=== PATIENT | female | born 1985 | race Caucasian/White ===

== ENCOUNTER → 2018-05-26 14:54 | Outpatient (CLI) | payer OTHER, MEDICAID, SELFPAY ==
[2018-05-26 15:48] LABS: Hematocrit 40.4 % (36-46); Hemoglobin 13.7 g/dL (12.0-16.0); Mean Corpuscular HGB Conc 33.9 % (30-36); Mean Corpuscular Hemoglobin 29.6 PG (26-34); Mean Corpuscular Volume 87.3 fL (80-100); Platelet Count 228 X10^3/uL (150-400); Red Blood Cell Count 4.62 X10^6/uL (4.0-5.2); Red Cell Distribution Width 13.2 % (11.6-14.8); White Blood Cell Count 12.1 X10^3/uL (4.5-11.0)
[2018-05-26 16:49] LABS: T4 Total Thyroxine 7.73 ug/dL (5.5-11.0)
[2018-05-26 17:02] LABS: Thyroid Stimulating Hormone 2.13 uIU/mL (0.47-4.68)
[2018-05-26 17:13] LABS: Hepatitis B Surface Antigen NEGATIVE s/c (NEGATIVE); Rubella Antibody IgG 43.3 IU/mL (>15)
[2018-05-26 18:08] LABS: Urine N gonorrhoeae NOT DETECTED
[2018-05-26 18:09] LABS: Urine Chlamydia NOT DETECTED
[2018-05-29 08:15] LABS: RPR Screen Nonreactive (Nonreactive)
== END ==
PROVIDERS: Visit Provider Nurse Practitioner Obstetrics & Gynecology
DX: Z34.90 Encounter for supervision of normal pregnancy, unspecified, unspecified trimester (principal)
CPT/HCPCS: 36415; 84436; 84443; 85027; 86592; 86762; 86850; 86900; 86901; 87086; 87340; 87491; 87591

== ENCOUNTER → 2018-06-27 14:57 | Outpatient (REF) | payer OTHER, MEDICAID, SELFPAY ==
[2018-06-27 15:30] LABS: Appearance Urine UA CLOUDY; Bilirubin Urine UA NEGATIVE (NEGATIVE); Color Urine UA YELLOW; Glucose Urine UA NEGATIVE (Negative); Ketones Urine UA NEGATIVE (NEGATIVE); Leukocyte Esterase Urine UA NEGATIVE (NEGATIVE); Nitrite Urine UA NEGATIVE (Negative); Occult Blood Urine UA NEGATIVE (Negative); Protein Urine UA NEGATIVE (Negative); Urobilinogen Urine UA 0.2 E.U./dL (0.2); pH Urine UA 7.5 (4.5-8.0)
[2018-06-27 16:19] LABS: Amorphous Sediment Urine 3+; Bacteria Urine Many (>30); RBC Urine 0-1/HPF (0-5/HPF); WBC Urine 0-1/HPF (0-5/HPF)
[2018-06-27 16:20] LABS: Culture Indicated Urine Cult Not Indicated
== END ==
LOC: LAB 14:57
PROVIDERS: Visit Provider Nurse Practitioner Obstetrics & Gynecology
DX: Z34.01 Encounter for supervision of normal first pregnancy, first trimester (principal)
CPT/HCPCS: 81001

== ENCOUNTER → 2018-07-25 12:16 | Outpatient (REF) | payer OTHER, MEDICAID, SELFPAY ==
[2018-07-28 16:28] LABS: Alpha Fetoprotein 54.7 ng/mL (< 6.1)
== END ==
LOC: LAB 12:16
PROVIDERS: Visit Provider Nurse Practitioner Obstetrics & Gynecology
DX: O09.892 Supervision of other high risk pregnancies, second trimester (principal)
CPT/HCPCS: 82105

== ENCOUNTER → 2018-08-15 12:00 | Outpatient (CLI) | payer OTHER, MEDICAID, SELFPAY ==
--- NOTE | 2018-08-15 | DI.US.S_ITS ---
PROCEDURE: US OB >= 14 WEEKS FETUS INDICATIONS: ANATOMY SCAN OUTSIDE/PRIOR DATING DATA: Last menstrual period (LMP): Not available. LMP-based estimated date of delivery (LISHA): Not available. First dating scan (date and location): This study, 08/15/18. Estimated date of delivery (LISHA) from first dating scan: 12/26/18. There is an indication that a prior OB ultrasound first trimester been performed but images from that examination are not available for review. TECHNIQUE: Real-time scanning was performed of the fetus, with image documentation and biometric measurements. Endovaginal scanning: Not needed for this study COMPARISON: None. FINDINGS: General: A single living intrauterine gestation is present. Presentation: Transverse head to maternal left. Placenta: Placental position is posterior, without previa. Amniotic fluid index: 15.3 cm, normal range is 5-24 cm. heart rate: 153 beats per minute. Maternal cervical canal: 4.6 cm long. Normal lower limit is 2.5 cm. biometrics: Biparietal diameter: 4.9 cm, 21 weeks 0 days Head circumference: 18.6 cm, 21 weeks 0 days Abdominal circumference: 16.9 cm, 21 weeks 6 days Femur length: 3.2 cm, 20 weeks 1 day Estimated gestational age from initial scan: 20 weeks 4 days Composite gestational age from present scan: 21 weeks 0 days Estimated weight and percentile: 396 g, 72nd percentile Measurement variability for biometric dating: +/- 7 days from 14 weeks to 15 weeks 6 days gestation, +/- 10 days from 16 weeks to 21 weeks 6 days gestation, +/- 2 weeks from 22 weeks to 27 weeks 6 days gestation, +/- 3 weeks for 28 weeks gestation or later. weight reference: 4500 g or EFW >90/95% is considered macrosomia or large for gestational age. EFW <10% is small for gestational age. EFW 5% or less is considered intra-uterine growth restriction. Anatomic survey: Neuro: Ventricles are non-dilated at less than 10 mm. Cisterna magna is normal at 3-11 mm. Cerebellum is normal in size and morphology. Nuchal skin fold: Normal at less than 6 mm between 14-21 weeks gestational age. Face: Nose and lips, facial profile are normal. Spine: No evidence for spina bifida. Heart: 4-chambered heart is present, with normal ventricular outflow tracts. Diaphragm: Diaphragm is intact. Stomach: Left-sided stomach is present. Kidneys: No hydronephrosis. Normal is less than 5 mm in 2nd trimester, less than 7 mm in 3rd trimester. Cord: 3-vessel cord has orthotopic insertion. Bladder: Normal in size. Extremities: All 4 extremities identified. IMPRESSION: Single living intrauterine gestation with estimated date of delivery from this examination centered on 12/26/18. The current weight is 396 g, there is normal amniotic fluid volume, the survey of anatomy is normal, and the current positioning is transverse within the uterus with head directed to the maternal left. Dictated by: Trevor Pickett M.D. on 08/15/2018 at 14:59 Approved by: Trevor Pickett M.D. on 08/15/2018 at 15:04
== END ==
PROVIDERS: Visit Provider Nurse Practitioner Obstetrics & Gynecology
DX: Z36.89 Encounter for other specified antenatal screening (principal); Z3A.21 21 weeks gestation of pregnancy
CPT/HCPCS: 76801; 76811

== ENCOUNTER → 2018-09-26 07:38 | Outpatient (CLI) | payer OTHER, MEDICAID, SELFPAY ==
[2018-09-26 10:05] LABS: Glucose Fasting 74 mg/dL (70-100)
[2018-09-26 10:48] LABS: Glucose Tol Interpretation INTERPRETATION
[2018-09-26 11:17] LABS: Glucose 1 Hour 108 mg/dL (70-170)
[2018-09-26 12:31] LABS: Hematocrit 34.3 % (36-46); Hemoglobin 11.8 g/dL (12.0-16.0); Mean Corpuscular HGB Conc 34.2 % (30-36); Mean Corpuscular Hemoglobin 30.6 PG (26-34); Mean Corpuscular Volume 89.3 fL (80-100); Platelet Count 232 X10^3/uL (150-400); Red Blood Cell Count 3.84 X10^6/uL (4.0-5.2); Red Cell Distribution Width 12.6 % (11.6-14.8); White Blood Cell Count 11.8 X10^3/uL (4.5-11.0)
[2018-09-26 13:09] LABS: Glucose 2 Hour 113 mg/dL (70-140)
== END ==
PROVIDERS: Visit Provider Nurse Practitioner Obstetrics & Gynecology
DX: Z34.92 Encounter for supervision of normal pregnancy, unspecified, second trimester (principal); Z3A.26 26 weeks gestation of pregnancy
CPT/HCPCS: 36415; 82951; 82952; 85027

== ENCOUNTER → 2018-11-10 16:24 | Outpatient (ROUT) | payer OTHER, MEDICAID, SELFPAY ==
[2018-11-10 17:52] LABS: Alanine Aminotransferase 20 IU/L (9-52); Albumin 2.8 g/dL (3.5-5.0); Albumin Globulin Ratio 1.2 (1.0-2.8); Alkaline Phosphatase 126 U/L (38-126); Aspartate Aminotransferase 19 IU/L (14-36); Bilirubin Total 0.2 mg/dL (0.2-1.3); Bilirubin Unconjugated 0.2 mg/dL (0.0-1.1); Globulin 2.4 g/dL (1.7-4.1); HEMOLYSIS 17 (0-50); Total Protein 5.2 g/dL (6.3-8.2)
[2018-11-12 14:34] LABS: Bile Acids, Total 6 umol/L (< 20)
== END ==
PROVIDERS: Visit Provider Nurse Practitioner Obstetrics & Gynecology
DX: L29.9 Pruritus, unspecified (principal); Z3A.33 33 weeks gestation of pregnancy
CPT/HCPCS: 80076; 82239

== ENCOUNTER → 2018-11-28 15:24 | Outpatient (ROUT) | payer OTHER, MEDICAID, SELFPAY | PROVIDERS: Visit Provider Nurse Practitioner Obstetrics & Gynecology | DX: Z34.03 Encounter for supervision of normal first pregnancy, third trimester (principal) | CPT/HCPCS: 87081 ==

== ENCOUNTER → 2018-12-14 07:38 | Outpatient (CLI) | payer OTHER, MEDICAID, SELFPAY ==
[2018-12-14 08:03] LABS: Alanine Aminotransferase 19 IU/L (9-52); Albumin 3.3 g/dL (3.5-5.0); Albumin Globulin Ratio 1.1 (1.0-2.8); Alkaline Phosphatase 214 U/L (38-126); Aspartate Aminotransferase 25 IU/L (14-36); Bilirubin Total 0.2 mg/dL (0.2-1.3); Bilirubin Unconjugated 0.2 mg/dL (0.0-1.1); HEMOLYSIS < 15 (0-50); Total Protein 6.3 g/dL (6.3-8.2)
[2018-12-21 10:00] LABS: Bile Acids, Total 5
== END ==
PROVIDERS: Visit Provider Nurse Practitioner Obstetrics & Gynecology
DX: Z34.03 Encounter for supervision of normal first pregnancy, third trimester (principal); L29.9 Pruritus, unspecified
CPT/HCPCS: 36415; 80076; 82239

== ENCOUNTER → 2018-12-22 07:30 | Outpatient (CLI) | payer OTHER, MEDICAID, SELFPAY ==
[2018-12-22 09:20] LABS: Alanine Aminotransferase 17 IU/L (9-52); Albumin 3.1 g/dL (3.5-5.0); Albumin Globulin Ratio 1.2 (1.0-2.8); Alkaline Phosphatase 228 U/L (38-126); Aspartate Aminotransferase 25 IU/L (14-36); Bilirubin Total 0.3 mg/dL (0.2-1.3); Bilirubin Unconjugated 0.2 mg/dL (0.0-1.1); Globulin 2.6 g/dL (1.7-4.1); HEMOLYSIS < 15 (0-50); Total Protein 5.7 g/dL (6.3-8.2)
[2018-12-25 14:38] LABS: Bile Acids, Total 5 umol/L (< 20)
== END ==
PROVIDERS: Visit Provider Nurse Practitioner Obstetrics & Gynecology
DX: Z34.03 Encounter for supervision of normal first pregnancy, third trimester (principal); L29.9 Pruritus, unspecified
CPT/HCPCS: 36415; 80076; 82239

== ENCOUNTER 2018-12-27 16:14 | Outpatient (CLI) | payer OTHER, MEDICAID, SELFPAY ==
--- NOTE | 2018-12-27 17:13 | PM.OBTRLD ---
PFSH Surgical History (Updated 12/27/18 @ 17:20 by Halima Dixon CNM) History of hernia repair (Acute) History of tonsillectomy (Acute) Family History (Updated 12/27/18 @ 17:23 by Halima Dixon CNM) Mother Thyroid tumor, benign Father Hypertension Family History (Updated 12/27/18 @ 17:23 by Halima Dixon CNM) Mother Thyroid tumor, benign Father Hypertension Review of Systems Review of Systems Narrative: 33YO @ [id number] by LMP and early US presents for evaluation of PROM. [place] a gush after peeing around 0400 this morning, then nothing for a few ahours. Noticed some more watery fluid leaking midday. +FM throughout the day. no ctx or VB. ROS Unobtainable: All systems reviewed & are unremarkable except as noted in HPI and below Exam Vital Signs (past 8 hours): BP-114/77, HR-78, T-36.4 Objective Labs Labs: AmniSure negative Evaluation Evaluation Baseline heart rate: 125 Variability: Moderate (11-25) monitor accelerations: Present monitor decelerations: Absent Contraction Frequency (minutes): 6 Uterine Contraction Intensity: Mild Cervical dilation (cm): 3 Cervical effacement (%): 80 station: -3 Non-invasive Membranes Rupture Test: negative Diagnosis, Plan/Disposition Plan/Disposition Plan: Discharge to home with routine precautions. Counseled on routine labor precautions and when to call. Recommend routine post dates testing at [facility], scheduled for 01/05/19 1000. OB Disposition: home
== END 2018-12-27 17:15 | disposition home or self-care (01) ==
LOC: OB 12-28 15:03
PROVIDERS: Visit Provider Nurse Practitioner Obstetrics & Gynecology
DX: Z03.71 Encounter for suspected problem with amniotic cavity and membrane ruled out (principal); Z3A.39 39 weeks gestation of pregnancy
CPT/HCPCS: 59025; 84112; G0378; G0379

== ENCOUNTER 2018-12-29 00:35 | Inpatient (IN) | payer OTHER, MEDICAID, SELFPAY ==
--- NOTE | 2018-12-29 01:33 | PM.OBHP.1 ---
OB HPI History of Present Condition Chief complaint: Labor Narrative: Ghislaine Ferrer is a 33 year old female @ 40 weeks by her LMP and 9wk US who presents for evaluation of labor. Has been feeling contractions since this afternoon that have steadily progressed in frequency and intensity. +FM. No LOF or VB. Desires low intervention . FOB present and supportive. Uncomplicated PN care w/ CNM. Evaluation Evaluation Baseline heart rate: 115 Variability: Moderate (11-25) monitor accelerations: Present monitor decelerations: Variable Contraction Frequency (minutes): 3 Category of Tracing: I Cervical dilation (cm): 4 Cervical effacement (%): 90 station: -3 Comments: Ctx Q 2-5 minutes BBOW palpated PFSH Surgical History History of hernia repair (Acute) History of tonsillectomy (Acute) Family History Mother Thyroid tumor, benign Father Hypertension Social History Smoking Status: Never smoker Family History Mother Thyroid tumor, benign Father Hypertension Social History Smoking Status: Never smoker Meds Home Medications and Allergies Home Medications Medication Instructions Recorded Confirmed Type omeprazole 20 mg PO DAILY 12/29/18 12/29/18 History Allergies Allergy/AdvReac Type Severity Reaction Status Date / Time No Known Drug Allergies Allergy Verified 12/29/18 01:44 Review of Systems Review of Systems ROS Unobtainable: All systems reviewed & are unremarkable except as noted in HPI and below Exam Vital Signs (past 8 hours): BP 125/79, HR 88, T36.7C Narrative Exam Narrative: Breathing through regular contractions. Const General: cooperative Nutritional Appearance: average body habitus Orientation: alert, awake and oriented x3 Chest Chest: normal inspection of the chest Breast inspection: normal inspection of the breasts Resp Effort & Inspection: normal respiratory effort and able to speak in complete sentences Cardio Rate: regular rate Rhythm: regular rhythm Extrem General: normal to inspection Objective Labs Labs: ABO/Rh- A positive, AB screen-negative, HIV-declined, GC/CT-neg/neg, Hep B-neg, RPR-NR, Rubella-immune, TSH-2.13, MsAFP-neg; 09/26/18: Hgb-11.8, Hct-34.3, Plt-232, 2hr gtt-WNL; 11/28/18: GBS-neg Assessment and Plan Assessment and Plan Assessment and Plan narrative: A:Term Primipara Active Labor No indication for GBS prophylaxis Cat I FHR P: Admit, routine orders w/ SL IV, CBC and T&S. Labor support PRN. Reassess in 4 hours or sooner, PRN.
[2018-12-29 01:45] VITALS: BP 125/79
[2018-12-29 02:36] LABS: Add Manual Diff / Slide Review NO; Basophils Absolute Auto 100 /uL (0-100); Basophils Percent Auto 0.5 % (0-2); Eosinophils Absolute Auto 100 /uL (0-450); Eosinophils Percent Auto 0.5 % (2-4); Hemoglobin 13.4 g/dL (12.0-16.0); Lymphocytes Absolute Auto 2000 /uL (1100-4500); Mean Corpuscular HGB Conc 33.6 % (30-36); Mean Corpuscular Hemoglobin 28.7 PG (26-34); Mean Corpuscular Volume 85.6 fL (80-100); Monocytes Absolute Auto 1500 /uL (0-900); Monocytes Percent Auto 7.3 % (3-14); Neutrophils Absolute Auto 16500 /uL (1500-7000); Neutrophils Percent Auto 81.7 % (50-75); Platelet Count 281 X10^3/uL (150-400); Red Blood Cell Count 4.67 X10^6/uL (4.0-5.2); Red Cell Distribution Width 14.1 % (11.6-14.8); White Blood Cell Count 20.1 X10^3/uL (4.5-11.0)
--- NOTE | 2018-12-29 05:18 | PM.OBPNLAB ---
Date/Time Date Patient Seen: 12/29/18 Time Patient Seen: 05:00 Pain Control Pain control: tolerating well Comments: moaning with and breathing through regular contractions. Declines to lay down for exam, consents to exam on hands and knees. Pelvic Exam Dilation (cm): 4 Effacement (%): 90 station: -1 Amniotic membrane status: Intact Contractions Date/Time contractions began: 1800 Contractions on admission: regular Monitor mode: Palpation Contraction frequency (min): 4 Contraction duration (min): 90 Contraction pattern: Regular Contraction phase: Resting Contraction intensity: Strong/Firm Status status: Category l Heart Rate Baseline: 120 Monitor Accelerations: Present Monitor Decelerations: Absent Monitor Variability: Moderate Comments: Reassuring FHR by intermittent auscultation Assessment and Plan Assessment: active labor Plan: continuous present management
[2018-12-29] MEDS: CITRIC ACID/SODIUM CITRATE 15 ML SOLUTION 30 ML PO (05:43)
[2018-12-29] MEDS: ONDANSETRON 8 MG in SODIUM CHLORIDE 0.9% 50 ML 216 ML IV (07:45)
[2018-12-29] MEDS: CALCIUM CARBONATE 500 MG TAB PO ×2 (09:24→11:36)
--- NOTE | 2018-12-29 09:27 | PM.OBPNLAB ---
Date/Time Date Patient Seen: 12/29/18 Time Patient Seen: 09:00 Pain Control Pain control: tolerating well Comments: considering requesting epidural, but still undecided Pelvic Exam Dilation (cm): 6 Effacement (%): 90 station: -1 Amniotic membrane status: Bulging Contractions Contractions on admission: regular Monitor mode: Palpation Pitocin rate (mU/min): 0 Contraction frequency (min): 4 Contraction duration (min): 80 Contraction pattern: Regular Contraction phase: Resting Contraction intensity: Moderate Status Heart Rate Baseline: 120 Comments: Reassuring by intermittent auscultation Q30 minutes with no decreases Assessment and Plan Assessment: active labor Plan: continuous present management Comments: Discussed slow labor progress and options for pain relief for relaxation and augmentation w/ AROM. Pt does not desire any intervention at this time. notified of pt status and POC. Continuous labor support. Reassess in 4 hours or sooner, PRN.
--- NOTE | 2018-12-29 13:03 | PM.OBPNLAB ---
Date/Time Date Patient Seen: 12/29/18 Time Patient Seen: 13:00 Pain Control Comments: Coping well, but tired and ready for epidural and intervention if no cervical change Pelvic Exam Dilation (cm): 6 Effacement (%): 90 station: -1 Amniotic membrane status: Bulging Contractions Contractions on admission: regular Monitor mode: Palpation Contraction frequency (min): 7 Contraction duration (min): 140 Contraction pattern: Regular Contraction phase: Resting Contraction intensity: Moderate Status status: Category l Heart Rate Baseline: 120 Monitor Accelerations: Present Monitor Decelerations: Early Monitor Variability: Moderate Assessment and Plan Assessment: active labor Plan: begin patient augmentation Comments: No cervical change in 4 hours and minimal change in 8 hours. Strongly encouraged labor augmentation w/ pitocin and/or AROM. Pt desires epidural first, then augmentation. Will consult anesthesia. Will augment labor once comfortable.
[2018-12-29] MEDS: LACTATED RINGERS 1,000 ML 100 ML IV ×4 (13:05→23:32)
--- NOTE | 2018-12-29 16:16 | PM.OBPNLAB ---
Date/Time Date Patient Seen: 12/29/18 Time Patient Seen: 14:40 Pain Control Pain control: epidural Comments: pt more comfortable after epidural placement. Pelvic Exam Dilation (cm): 6 Effacement (%): 90 station: -1 Amniotic membrane status: Ruptured Comments: AROM, clear fluid performed after verbal consent obtained Contractions Monitor mode: Palpation Pitocin rate (mU/min): 0 Contraction frequency (min): 7 Contraction duration (min): 2 Contraction pattern: Regular Contraction phase: Resting Contraction intensity: Moderate Status status: Category l Heart Rate Baseline: 115 Monitor Accelerations: Present Monitor Decelerations: Early Monitor Variability: Moderate Assessment and Plan Assessment: active labor and other (Prolonged active phase) Plan: begin patient augmentation Comments: Recommend pitocin w/ AROM. Pt strongly wishes to avoid pitocin. Will recheck in 3 hours and recommend IUPC/pit if no change at that time. Recommend frequent position changes w/ peanut ball, side-lying release, etc to promote rotation. Discussed POC w/ @ 0352.
--- NOTE | 2018-12-29 19:07 | PM.OBPNLAB ---
Date/Time Date Patient Seen: 12/29/18 Time Patient Seen: 18:30 Pain Control Pain control: epidural Comments: Inadequate pain relief w/ epidural which was bolus-ed multiple times, catheter pulled back and then ultimately replaced. Utilized nitrous oxide for short period of time prior to epidural replacement while awaiting anesthesia. Intermittent maternal tachycardia and hypertension with pain, currently resolved. VS: BP-116/57, HR-116, T-37.1 Pelvic Exam Dilation (cm): 6 Effacement (%): 90 station: -1 Amniotic membrane status: Ruptured Comments: Attempted gentle manual rotation from LOP to DARYL, minimal movement of head achieved. IUPC placed Contractions Monitor mode: Palpation Contraction frequency (min): 7 Contraction duration (min): 90 Contraction pattern: Regular Contraction phase: Resting Contraction intensity: Moderate Intrauterine tone measurement: 115 Status status: Category l Monitor Accelerations: Present Monitor Decelerations: Early Monitor Variability: Moderate Assessment and Plan Assessment: active labor and other (Augmented labor, prolonged active phase, malpresentation-LOP) Plan: begin patient augmentation Comments: Counseled patient on prolonged active phase and malpresentation between 1730 and 1830, during which time patient struggled with inadequate pain relief. Ultimately, IUPC was placed and revealed inadequate ctx. Once patient was more comfortable after epidural re-placement, options for primary for active phase arrest vs pitcoin augmentation were offered. Pt desires pitocin augmentation, aware of no change in position at this point. Will recheck after 2 hours of adequate ctx. Will consult OB accordingly if unable to achieve adequate ctx pattern or cervical change and descent. Dr. Lo aware of POC.
[2018-12-29] MEDS: OXYTOCIN PREMIX 30 UNIT/500 ML PLAST..BAG IV (19:18)
[2018-12-29] MEDS: FENT 2MCG/ML BUPIV 0.125% EPI 200 MCG/100 ML PLAST..BAG 13.5 MCG EPIDURAL (21:42)
--- NOTE | 2018-12-29 22:14 | PM.OBPNLAB ---
Date/Time Date Patient Seen: 12/29/18 Time Patient Seen: 22:00 Pain Control Pain control: tolerating well and epidural Pelvic Exam Dilation (cm): 6 Effacement (%): 90 station: -1 Amniotic membrane status: Ruptured Contractions Contractions on admission: regular Monitor mode: Palpation Contraction frequency (min): 2 Contraction duration (min): 80 Contraction pattern: Regular Contraction phase: Resting Contraction intensity: Moderate Intrauterine tone measurement: 180 Status status: Category l Heart Rate Baseline: 135 Monitor Accelerations: Present Monitor Decelerations: Absent Monitor Variability: Moderate Comments: Arrest of active phase labor. Assessment and Plan Assessment: other Plan: Comments: Consulted for primary . Counseled Ghislaine and her family on this recommendation, to consent.
[2018-12-29] MEDS: CEFOTETAN 2 GM/50 ML PIGGYBACK IV (23:00)
[2018-12-29] MEDS: FAMOTIDINE 20 MG/50 ML PIGGYBACK 200 MG IV (23:12)
--- NOTE | 2018-12-29 23:49 | PM.GYNOP.1 ---
Operative Date/Time/Diagnoses Date of procedure: 12/29/18 Time of procedure: 23:50 Pre-op diagnosis: Term intrauterine Cephalopelvic disproportion failure to progress Post-op diagnosis: same Procedure & Clinicians Procedure: Procedures Operation Date: 12/29/18 22:30 Actual Procedures Side Surgeon p Section Charbel Lo MD Indications: Term intrauterine Cephalopelvic disproportion failure to progress Surgeon: Charbel Lo Last Inserter: Bryanna Garcia Anesthesia Type: Spinal Operative Notes Findings: Live-born male Normal uterus tubes and over Closure Type: primary Specimen(s): none Applied: catheter Estimated blood loss (mL): 500 Blood products transfused: none Procedure in detail: The patient was placed supine upon the operating table and anesthetized. She was draped and prepared in the usual fashion. Transverse incision was then made. Subcutaneous tissue was incised to the fascia. Fascia was incised with sharp knife transversely in each direction. The pyramidalis muscles were incised the midline. This incision was widened by blunt finger dissection. Bladder blade was set in place. Peritoneum over the lower uterine segment was picked up and incised laterally in each direction. Bladder blade was have back in place. Transverse incision was made across the lower uterine segment and perforating incision was made centrally. There was meconium-stained amniotic fluid. Live born male infant was delivered with scores of nine at 1 minute nine at 5 minutes in good condition. The respiratory therapist and nursery in attendance of infant normal in good condition. Cord blood was obtained. Cord had three vessels. Placenta was removed without difficulty and all membranes massage from the endometrial cavity. Lateral edges of the incision were grasped with [place] clamps. The uterine incision was closed in imbricating fashion using two layer technique with 1. Chromic suture. No bleeding points were seen. The visceral peritoneum was closed with running two 0 chromic suture. Tubes and ovaries appeared to be normal. The parietal perineum was grasped and closed with running two 0 chromic suture. Area was copiously irrigated. Primary else muscles are reapproximated the midline using horizontal mattress 1. Vicryl suture. Fascia was then closed with two continuous 1. Vicryl sutures. The area was copiously irrigated. Subcutaneous tissue was closed in two layers. 1st layer was closed with interrupted three 0 Vicryl suture. 2nd layer was closed with a running horizontal mattress three 0 Vicryl suture. Skin was further approximated with Steri-Strips. At the end of the procedure the wound is dry. Lochia was scant. Urine was clear. Patient was taken to the recovery room in satisfactory condition Complications: none Post-operative Condition: stable Disposition: PACU Plan for aftercare: Ob
[2018-12-29 23:51] VITALS: BP 101/53; PULSE 99; RESP 18; TEMP 36.5; O2SAT 100
[2018-12-29 23:56] VITALS: BP 106/54; PULSE 100; RESP 16; O2SAT 99
--- NOTE | 2018-12-29 23:59 | SUR.OPER ---
Supine on Padded OR bed, head on pillow, safety belt at thigh, arms secured on padded arm boards at <90 degrees abduction. Bump under right buttock. Legs uncrossed with pillow under knees, gel pad to heels, tape over blanket to lower legs.
[2018-12-30 00:01] VITALS: BP 102/58; PULSE 109; RESP 14; O2SAT 99
--- NOTE | 2018-12-30 00:03 | SUR.OPER ---
Viable male delivered at 2313. Apgars of 9 and 9. Cord Blood and Placenta sent with L&D nurse.
[2018-12-30 00:06] VITALS: BP 103/58; PULSE 98; RESP 15; TEMP 37.2; O2SAT 98
[2018-12-30 00:11] VITALS: BP 104/60; PULSE 104; RESP 16; O2SAT 97
[2018-12-30 00:17] VITALS: BP 99/60; PULSE 105; RESP 17; O2SAT 96
--- NOTE | 2018-12-30 00:35 | SUR.PHASEI ---
PT TRANSFERRED TO IN STABLE CONDITION, VSS. BEDSIDE REPORT GIVEN TO JADA KEE AT THAT TIME. PT SIGNIFCANT OTHER AND PT MOM AT BEDSIDE UPON ARRIVAL TO ROOM. TRANSFERRED CARE OF PT TO JADA KEE AT THAT IN STABLE CONDITION.
[2018-12-30 05:53] LABS: Hematocrit 31.8 % (36-46); Hemoglobin 10.7 g/dL (12.0-16.0)
[2018-12-30] MEDS: KETOROLAC 30 MG/ML VIAL IV ×2 (06:02→17:51)
[2018-12-30] MEDS: DOCUSATE 250 MG CAPSULE PO (17:52)
[2018-12-30 23:00] VITALS: BP 113/67; PULSE 89; RESP 16; TEMP 36.9
[2018-12-31] MEDS: HYDROCODONE/ACET 5/325 TABLET 1 TAB PO ×4 (00:38→14:32)
[2018-12-31] MEDS: IBUPROFEN 600 MG TABLET PO ×3 (00:42→14:32)
[2018-12-31] MEDS: FERROUS GLUCONATE 324 MG TABLET PO (07:53)
--- NOTE | 2018-12-31 09:11 | P.DS_ITS ---
Discharge Providers Provider Date of admission: 12/29/18 00:35 Discharge Date: 12/31/18 Primary care physician: Halima Dixon Consults: 12/29/18 01:25 Consult to Anesthesiology Urgent Comment: Consulting Provider: Stef Woods Reason for consultation: pain control PRN Has provider been notified: No 12/30/18 01:38 Consult to Informatics Application Analyst Routine Comment: Discharge provider: Charbel Lo MD Summary Hospital Course Date Patient Seen: 12/31/18 Time Patient Seen: 09:12 Procedures: Artificial rupture membranes Pitocin augmentation of labor Epidural anesthesia Primary low segment section current type Hospital Course: The patient is a 33-year-old one para one under the care Halima Dixon 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 Patient presented in early labor and progressed very slowly to approximately 6 cm. The patient was reluctant for intervention but eventually except augmentation of labor rupture of membranes. The head never descended and the cervix remained at 6 cm. After discussion with the patient and her the patient was taken the operating room and underwent a primary low segment section current type. She was delivered of a live-born male with scores of nine at 1 minute nine at 5 minutes in good condition. Post delivery she did well. She remained afebrile stable vital signs and was progressively element and ambulated. She was discharged home for follow-up in one week for Aquacel dressing removal and in six weeks with Zack for standard six week follow-up exam Peripartum Data Delivery Method: Section Procedures: Artificial rupture the membranes Pitocin augmentation of labor Epidural anesthesia Primary low segment section current type complications: none Status at Discharge Cognitive/behavioral status at discharge: oriented Functional status at discharge: independent ambulation Overall status at discharge: patient is progressing back to baseline Time Spent with Patient Time attestation: Total time spent providing and/or coordinating discharge services: Time spent: Less than 30 minutes Objective Labs Result Diagrams: 12/30/18 04:55 Exam Vital Signs (past 8 hours): Oxygen Delivery Method Room Air Narrative Exam Narrative: Fundus U minus two Incision looks fine with Aquacel dressing Lochia scant Discharge Plan Discharge Plan Patient Disposition: Home Discharge Med Rec/Prescriptions Prescriptions: New oxycodone-acetaminophen 5-325 mg Tablet 2 tab PO Q4HR PRN (Reason: Pain, Severe (7-10)) Qty: 14 RF: 0 ibuprofen 600 mg Tablet 600 mg PO Q6HR PRN (Reason: As Needed For Fever/Mild Pain) Qty: 20 RF: 0 docusate sodium 250 mg Capsule 250 mg PO DAILY Qty: 10 RF: 0 [id number] Cream 1 applic topical PRN PRN (Reason: ) Qty: 1 RF: 0 ferrous gluconate 324 mg (38 mg iron) Tablet 324 mg PO DAILY Qty: 60 RF: 0 Discontinued omeprazole 20 mg Capsule,Delayed Release(Dr/Ec) 20 mg PO DAILY RF: 0 Follow up/Referrals: Charbel Lo MD [Physician] - 01/05/19 Halima Dixon CNM [Advanced Counseling Director] - 6 Weeks Provider Discharge Instructions Diet: Diet as Tolerated Activity: Up ad anirudh Limit stair May shower Skin/Wound/Dressing Care Report to your healthcare provider any signs of infection, such as:: chills, fever, increased pain, unusual drainage and unusual redness Other wound treatment: Aquacel dressing removal one week
== END 2018-12-31 16:58 | disposition home or self-care (01) | DRG 540 ==
PROVIDERS: Admitting Provider Nurse Practitioner Obstetrics & Gynecology; Visit Provider Nurse Practitioner Obstetrics & Gynecology
PROC: 10D00Z1 Extraction of Products of Conception, Low, Open Approach (ICD-10-PCS; CPT 59514; principal; 2018-12-29 22:30)
DX: O64.8XX0 Obstructed labor due to other malposition and malpresentation, not applicable or unspecified (principal); Z3A.40 40 weeks gestation of pregnancy; Z37.0 Single live birth; D62 Acute posthemorrhagic anemia
CPT/HCPCS: 01967; 01968; 36415; 59050; 85014; 85018; 85025; 86850; 86900; 86901; G0379; J1885; J2274; J2405; J2590; J2765; J3010